=== PATIENT | male | born 1985 | race Caucasian/White ===

== ENCOUNTER 2024-07-13 08:29 | Emergency (ER) | payer OTHER, SELFPAY ==
--- OUTSIDE RECORDS SUMMARY | 2024-07-13 08:31 | XMS_ITS ---
Author Organization [facility] Address [address] [place] [address] Care Team Providers Care Residential Glazier Name Role Phone FELIX SAGASTUME Primary Care Provider Onesimo Bernard [phone] REASON FOR VISIT Ativan/Vimpat - Controlled MEDICATIONS Medication SIG (Take, Route, Frequency, Duration) Notes Start Date End Date Status Ativan 1 MG 2-3 tablets as neede d for aura Orally as directed for 30 days 04/01/2024 Active Vimpat 50 MG 2 tablets at midday (in addition to 100 mg AM and 150 mg at bedtime) Orally daily for 30 days 04/01/2024 Active Vimpat 100 MG 1 tablet every am (i n addition to 75-100 mg midafternoon and 150 mg pm) orally daily for 30 days 04/01/2024 Active Vimpat 150 MG 1 tablet every pm (i n addition to 100 mg am and 75 mg in the afternoon) Orally daily for 30 days 04/01/2024 Active Encounters Encounter Location Date Provider Diagnosis [facility] [address] [place] [address] 04/01/2024 Onesimo Taylor Localization-related (focal) (partial) idiopathic epilepsy and epileptic syndromes with seizures of localized onset, not intractable, without status epilepticus G40.009 ASSESSMENTS Encounter Date Diagnosis Assessment Notes Treatment Notes Treatment Clinical Notes 04/01/2024 Localization-related (focal) (partial) idiopathic epilepsy and epileptic syndromes with seizures of localized onset, not intractable, without status epilepticus (ICD-10 - G40.009) PLAN OF TREATMENT Medication Medication Name Sig Start Date Stop Date Notes Ativan 1 MG 2-3 tablets as neede d for aura Orally as directed for 30 days 04/01/2024 Vimpat 50 MG 2 tablets at midday (in addition to 100 mg AM and 150 mg at bedtime) Orally daily for 30 days 04/01/2024 Vimpat 100 MG 1 tablet every am (i n addition to 75-100 mg midafternoon and 150 mg pm) orally daily for 30 days 04/01/2024 Vimpat 150 MG 1 tablet every pm (i n addition to 100 mg am and 75 mg in the afternoon) Orally daily for 30 days 04/01/2024
--- OUTSIDE RECORDS SUMMARY | 2024-07-13 08:31 | XMS_ITS ---
Author Organization [facility] Address [address] [place] [address] Care Team Providers Care Program Engagement Director Name Role Phone FELIX SAGASTUME Primary Care Provider UnavailOnesimo Andrade [phone] REASON FOR VISIT Vimpat - Controlled MEDICATIONS Medication SIG (Take, Route, Frequency, Duration) Notes Start Date End Date Status Vimpat 50 MG 2 tablets at midday (in addition to 100 mg AM and 150 mg at bedtime) Orally daily for 90 days 05/24/2024 Active Vimpat 100 MG 1 tablet every am (i n addition to 75-100 mg midafternoon and 150 mg pm) orally daily for 90 days 05/24/2024 Active Vimpat 150 MG 1 tablet every pm (i n addition to 100 mg am and 75 mg in the afternoon) Orally daily for 90 days 05/24/2024 Active Encounters Encounter Location Date Provider Diagnosis [facility] [address] [place] [address] 05/23/2024 Onesimo Taylor Localization-related (focal) (partial) idiopathic epilepsy and epileptic syndromes with seizures of localized onset, not intractable, without status epilepticus G40.009 ASSESSMENTS Encounter Date Diagnosis Assessment Notes Treatment Notes Treatment Clinical Notes 05/23/2024 Localization-related (focal) (partial) idiopathic epilepsy and epileptic syndromes with seizures of localized onset, not intractable, without status epilepticus (ICD-10 - G40.009) PLAN OF TREATMENT Medication Medication Name Sig Start Date Stop Date Notes Vimpat 50 MG 2 tablets at midday (in addition to 100 mg AM and 150 mg at bedtime) Orally daily for 90 days 05/24/2024 Vimpat 100 MG 1 tablet every am (i n addition to 75-100 mg midafternoon and 150 mg pm) orally daily for 90 days 05/24/2024 Vimpat 150 MG 1 tablet every pm (i n addition to 100 mg am and 75 mg in the afternoon) Orally daily for 90 days 05/24/2024
--- OUTSIDE RECORDS SUMMARY | 2024-07-13 08:31 | XMS_ITS ---
Author Organization [facility] Address [address] [place] [address] Care Team Providers Care Water Supervisor Name Role Phone FELIX SAGASTUME Primary Care Provider Unavailab Onesimo Victor Unavailable [phone] REASON FOR VISIT Moved to [facility] Encounters Encounter Location Date Provider Diagnosis [facility] [address] [place] [address] 03/28/2024 Onesimo Taylor PLAN OF TREATMENT No Information
--- OUTSIDE RECORDS SUMMARY | 2024-07-13 08:32 | XMS_ITS | Patient Health Record ---
Author Organization [facility] Address [address] [place] [address] Care Team Providers Care Economic Development Coordinator Name Role Phone FELIX SAGASTUME Primary Care Provider Onesimo Bernard Unavailable [phone] ALLERGIES Allergen (clinical drug ingredient) Drug/Non Drug Allergy documented on EMR Reaction Allergy Type Onset Date Status lisinopril Lisinopril Rash/Swelling Drug Allergy A ctive REASON FOR REFERRAL No Information MEDICATIONS Medication SIG (Take, Route, Frequency, Duration) Notes Start Date End Date Status Vimpat 50 MG 2 tablets at midday (in addition to 100 mg AM and 150 mg at bedtime) Orally daily for 90 days 05/24/2024 Active Vimpat 100 MG 1 tablet every am (i n addition to 75-100 mg midafternoon and 150 mg pm) orally daily for 90 days 05/24/2024 Active Ativan 1 MG 2-3 tablets as neede d for aura Orally as directed for 30 days 04/01/2024 Active Vimpat 150 MG 1 tablet every pm (i n addition to 100 mg am and 75 mg in the afternoon) Orally daily for 90 days 05/24/2024 Active Atorvastatin Calcium 10 MG 1 tablet Orally Once a day Active lamoTRIgine 100 MG TAKE 3 TABLETS BY [facility] TWICE A DAY for 30 days Active SOCIAL HISTORY Tobacco Use: Social History Observation Description Date Details (start date - stop date) Never Smoker NA - NA Sex Assigned At : Social History Observation Description Sex Assigned At Unknown Alcohol Screen Question Answer Notes Did you have a drink containing alcohol in the p ast year? Yes Smoking Question Answer Notes Are you a: nonsmoker Alcohol Screen Question Answer Notes Did you have a drink contain ing alcohol in the past year? Yes How often did you have a dri nk containing alcohol in the past year? Monthly or less (1 point) How many drinks did you have on a typical day when you were drinking in the past year? 1 or 2 (0 points) How often did you have six o r more drinks on one occasion in the past year? 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 Localization-related (focal) (partial) idiopathic epilepsy and epileptic syndromes with seizures of localized onset, not intractable, without status epilepticus G40.009 [facility] [address] [place] [address] 12/07/2023 [facility] [address] [place] [address] 01/26/2024 [facility] [address] [place] [address] 02/04/2024 [facility] Localization-related (focal) (partial) idiopathic epilepsy and epileptic syndromes with seizures of localized onset, not intractable, without status epilepticus G40.009 [facility] [address] [place] [address] 03/17/2024 [facility] [address] [place] [address] 03/22/2024 [facility] Localization-related (focal) (partial) idiopathic epilepsy and epileptic syndromes with seizures of localized onset, not intractable, without status epilepticus G40.009 [facility] [address] [place] [address] 03/23/2024 [facility] [address] [place] [address] 03/28/2024 [facility] [address] [place] [address] 04/01/2024 Onesimo Taylor Localization-related (focal) (partial) idiopathic epilepsy and epileptic syndromes with seizures of localized onset, not intractable, without status epilepticus G40.009 [facility] [address] [place] [address] 05/23/2024 Onesimo Taylor Localization-related (focal) (partial) idiopathic epilepsy and epileptic syndromes with seizures of localized onset, not intractable, without status epilepticus G40.009 ASSESSMENTS Encounter Date Diagnosis Assessment Notes Treatment Notes Treatment Clinical Notes 11/23/2023 Localization-related (focal) (partial) idiopathic epilepsy and epileptic syndromes with seizures of localized onset, not intractable, without status epilepticus (ICD-10 - G40.009) 02/04/2024 Localization-related (focal) (partial) idiopathic epilepsy and epileptic syndromes with seizures of localized onset, not intractable, without status epilepticus (ICD-10 - G40.009) 03/22/2024 Localization-related (focal) (partial) idiopathic epilepsy and epileptic syndromes with seizures of localized onset, not intractable, without status epilepticus (ICD-10 - G40.009) 04/01/2024 Localization-related (focal) (partial) idiopathic epilepsy and epileptic syndromes with seizures of localized onset, not intractable, without status epilepticus (ICD-10 - G40.009) 05/23/2024 Localization-related (focal) (partial) idiopathic epilepsy and epileptic syndromes with seizures of localized onset, not intractable, without status epilepticus (ICD-10 - G40.009) PLAN OF TREATMENT No Information Insurance Providers Payer Name Payer Address Payer Phone Subscriber Number Group Number Insured Name Patient Relationship to Insured Coverage Start Date Coverage End Date [employer] [id number] [place] [address] [id number] BETTERLY, RIN Self - patient is the insured 9 MEDICAL (GENERAL) HISTORY Medical History History ICD Code 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
[2024-07-13 08:49] VITALS: BP 147/83; PULSE 85; RESP 18; TEMP 36.6; O2SAT 97; BMI 22.8
[2024-07-13] MEDS: LACOSAMIDE 50 MG TABLET 100 MG PO (09:24)
[2024-07-13] MEDS: lamoTRIgine 100 MG TABLET 600 MG PO (09:25)
--- NOTE | 2024-07-13 09:32 | ED.GENADULT ---
HPI - General Adult General Chief complaint: Unspecified Complaint, Adult Stated complaint: Needs epilepsy medication Time Seen by Provider: 07/13/24 08:35 Source: patient Mode of arrival: ambulatory Limitations: no limitations History of Present Illness HPI narrative: 38-year-old male with a history of epilepsy presents today requesting refills of his medications. Patient is from [place], recently picked up all of his medications and left them at home when he came down to the [facility] for the holidays. He is here for another 3 days and reports sting with meds we refilled. No concerns. He did miss a dose of medication last night from is requesting abdominal dose this morning as he has been told by his neurologist if he has some is a dose he needs to double up on the next dose. Related Data Home Medications ?Medication ?Instructions ?Recorded ?Confirmed lacosamide 100 mg tablet mg PO 07/13/24 lacosamide 150 mg tablet mg PO 07/13/24 lacosamide 50 mg tablet mg PO 07/13/24 lamotrigine 100 mg tablet PO 07/13/24 Previous Rx's ?Medication ?Instructions ?Recorded lacosamide 150 mg tablet 150 mg PO BID 4 days #8 tabs 07/13/24 lacosamide 50 mg tablet 50 mg PO DAILY 4 days #4 tabs 07/13/24 lamotrigine 300 mg tablet,extended 300 mg PO BID 4 days #8 tabs 07/13/24 release 24 hr Allergies Allergy/AdvReac Type Severity Reaction Status Date / Time lisinopril Allergy Severe Swelling Verified 07/13/24 08:42 of Lip/Tongue/Throat Review of Systems Status of ROS: Reports: 6 or more systems reviewed and unremarkable except as noted in History and below Exam Narrative: Exam Narrative: Well-nourished well-developed patient in no acute distress. Alert and oriented. Answers questions appropriately. Mood and affect are appropriate. Thoughts are goal oriented and rational. No tangential or magical thinking noted. Patient speaks in full sentences without needing to catch his breath. Well groomed. HEENT: Normocephalic atraumatic. Extraocular muscles are intact. Conjunctivae are moist without any icterus noted. Moist mucous membranes. Const: Vital Signs, click to edit/add: Vital Signs - 24 hr 07/13/24 08:49 Temperature 97.9 F Pulse Rate [Pulse Oximeter] 85 Respiratory Rate 18 Blood Pressure [Ri ght Upper Arm] 147/83 H Pulse Oximetry 97 Oxygen Delivery Me thod Room Air Course Course ED Course: Lamotrigine and lacosamide were given in the ED today. Vital Signs Vital signs: Initial Vital Signs Temperature 97.9 F 07/13/24 08:49 Temperature Source Temporal Artery Scan 07/13/24 08:49 Pulse Rate 85 07/13/24 08:49 Respiratory Rate 18 07/13/24 08:49 Blood Pressure 147/83 H 07/13/24 08:49 Blood Pressure Mean 104 07/13/24 08:49 Blood Pressure Position Sitting 07/13/24 08:49 Pulse Oximetry 97 07/13/24 08:49 Oxygen Delivery Method Room Air 07/13/24 08:49 Vital Signs Temperature 97.9 F 07/13/24 08:49 Pulse Rate 85 07/13/24 08:49 Respiratory Rate 18 07/13/24 08:49 Blood Pressure 147/83 H 07/13/24 08:49 Pulse Oximetry 97 07/13/24 08:49 Oxygen Delivery Method Room Air 07/13/24 08:49 Temperature 97.9 F 07/13/24 08:49 Pulse Rate 85 07/13/24 08:49 Respiratory Rate 18 07/13/24 08:49 Blood Pressure 147/83 H 07/13/24 08:49 Pulse Oximetry 97 07/13/24 08:49 Oxygen Delivery Method Room Air 07/13/24 08:49 Medications Administered Medications: Discontinued Medications Generic Name Dose Route Start Last Admin Trade Name Freq PRN Reason Stop Dose Admin Lacosamide 100 mg 07/13/24 09:01 07/13/24 09:24 Lacosamide 50 Mg Tablet PO 07/13/24 09:02 100 mg ONCE ONE Administration Lamotrigine 600 mg 07/13/24 09:00 07/13/24 09:25 Lamotrigine 100 Mg Tablet PO 07/13/24 09:01 600 mg ONCE ONE Administration Medical Decision Making MDM Narrative Medical decision making narrative: 38-year-old male with epilepsy, medications filled for 4 days. Doses double checked with pharmacy. Discharge Plan Discharge Clinical Impression: Medication refill, Epilepsy Patient Disposition: Home, Self-Care Condition: Stable Prescriptions: New lacosamide 150 mg tablet 150 mg PO BID 4 Days Qty: 8 0RF Rx Instructions: Morning and evening lacosamide 50 mg tablet 50 mg PO DAILY 4 Days Qty: 4 0RF Rx Instructions: Afternoon lamotrigine 300 mg tablet extended release 24hr 300 mg PO BID 4 Days Qty: 8 0RF No Action lamotrigine 100 mg tablet PO lacosamide 50 mg tablet PO lacosamide 100 mg tablet PO lacosamide 150 mg tablet PO Follow Up/Referrals: Provider,Not a Local [Primary Care Provider] - Stand Alone [facility]: [facility] Inst[facility]
== END 2024-07-13 09:37 | disposition home or self-care (01) ==
PROVIDERS: Emergency Provider Family Medicine
DX: G40.909 Epilepsy, unspecified, not intractable, without status epilepticus (principal); Z76.0 Encounter for issue of repeat prescription
CPT/HCPCS: 99282; 99283; A9270